=== PATIENT | male | born 1995 | race Caucasian/White ===

== ENCOUNTER → 2019-04-18 | Outpatient (CLI) | payer BC ==
--- NOTE | 2019-04-18 16:20 | PCVCIMAG ---
APPROVED REPORT Study performed: 04/18/2019 14:37:13 EXAM: Comprehensive 2D, Doppler, and color-flow Echocardiogram Patient Location: Echo lab Status: routine BSA: 1.95 HR: 50 bpmBP: 110/70 mmHg Rhythm: PVC's Other Information Study Quality: Adequate Risk Factors: Cardiac Risk Factors: Hyperlipidemia Indications Dizziness and Vertigo Bradycardia 2D Dimensions IVSd: 9.35 (7-11mm) LVDd: 52.08 mm PWd: 10.60 (7-11mm)Ascending Ao: 27.97 (22-36mm) LVDs: 35.99 (25-40mm) Left Atrium: 34.78 (27-40mm) Aortic Root: 30.94 mm LV Single Plane 4CH: 50.35 % LV Single Plane 2CH: 57.51 % Biplane EF: 53.0 % Volumes Left Atrial Volume (Systole) Single Plane 4CH: 60.12 mLSingle Plane 2CH: 50.97 mL LA ESV Index: 30.00 mL/m2 Aortic Valve AoV Peak Stefan.: 1.16 m/s AO Peak Gr.: 5.39 mmHgLVOT Max P.02 mmHg LVOT Max V: 0.97 m/s Mitral Valve E/A Ratio: 2.23 MV Decel. Time: 188.10 ms MV E Max Stefan.: 0.58 m/s MV A Stefan.: 0.26 m/s IVRT: 100.35 ms Pulmonary Valve PV Peak Stefan.: 0.94 m/sPV Peak Gr.: 3.53 mmHg Pulmonary Vein P Vein S: 0.29 m/sP Vein A: 0.27 m/s P Vein D: 0.55 m/sP Vein A Dur.: 134.9 msec Tricuspid Valve TR Peak Stefan.: 2.29 m/s TR Peak Gr.: 21.03 mmHg Left Ventricle The left ventricle is normal size. There is normal LV segmental wall motion. There is normal left ventricular wall thickness. Left ventricular systolic function is normal. The left ventricular ejection fraction is within the normal range. LVEF is 55%. The left ventricular diastolic function is normal. Right Ventricle The right ventricle is normal size. The right ventricular systolic function is normal. Atria The left atrium size is normal. The right atrium size is normal. Aortic Valve The aortic valve is normal in structure. No aortic regurgitation is present. There is no aortic valvular stenosis. Mitral Valve The mitral valve is normal in structure. Mild mitral regurgitation. No evidence of mitral valve stenosis. Tricuspid Valve The tricuspid valve is normal in structure. Mild tricuspid regurgitation with PAP of 28 mmHg. Pulmonic Valve The pulmonary valve is normal in structure. Trace pulmonic regurgitation. Great Vessels The aortic root is normal in size. IVC is normal in size and collapses >50% with inspiration. Pericardium There is no pericardial effusion. There is no pleural effusion. <Conclusion> 1. Normal echocardiogram with Doppler. Ejection fraction 55%. 2. Structural valvular disease was absent. Mild mitral regurgitation. 3. Pulmonary artery pressure of approximately 28 mmHg. 4. No pericardial effusion.
--- NOTE | 2019-04-18 16:24 | PCVCIMAG ---
APPROVED REPORT Patient Location: Echo lab Room #: Stress Nurse: Kassy Collins RN Treadmill Stress test Indications- bradycardia, dizziness, dyspnea on exertion, hlp The patient exercised according to the KEVIN protocol for 13:11 mins; achieving a work level of 17.5 METS. The resting heart rate of 65 bpm jeremy to a maximum heart rate of 193 bpm. This value represent 97% of the maximal, age-predicted heart rate. The resting blood pressure of 110/70 mmHg, jeremy to a maximum blood pressure of 134/64 mmHg. The exercise test was stopped due to fatigue and dizziness. Resting EKG: Sinus rhythm normal tracing Stress EKG: No dysrhythmias. No ischemic electrocardiographic changes. Conclusion 1. Normal treadmill exercise study negative for exercise-induced ischemia. 2. No subjective signs of ischemia. No ischemic electrocardiographic changes. 3. The study was associated with excellent exercise capacity (17.5METS). Low Restrepo treadmill exercise score.
== END | disposition home or self-care (01) ==
LOC: PCVCIMAG 14:54
PROVIDERS: ATTEND Internal Medicine
DX: I08.1 Rheumatic disorders of both mitral and tricuspid valves (principal)
CPT/HCPCS: 93017; 93306